=== PATIENT | male | born 1940 | race Asian ===

== ENCOUNTER → 2017-07-17 | Outpatient (CLI) | payer MEDICARE, BC, OTHER ==
[~2017-07-17] MED LIST: GLIM2TAB3 PO; LEVO200 PO; METO-323 PO
[2017-07-17 13:42] LABS: BASOPHILS # (AUTO) 0.03 K/uL (0.00-0.20); BASOPHILS % (AUTO) 0.5 % (0.0-2.0); EOSINOPHILS % (AUTO) 1.74 % (1.0-6.0); HEMATOCRIT 44.2 % (41-53); HEMOGLOBIN 14.7 g/dL (13.5-17.5); LYMPHOCYTES # (AUTO) 1.9 K/uL (1.0-4.8); LYMPHOCYTES % (AUTO) 33.8 % (22.0-44.0); MEAN CORPUSCULAR HEMOGLOBIN 32.1 pg (26.0-34.0); MEAN CORPUSCULAR HGB CONC 33.2 G/dL (31.0-37.0); MEAN CORPUSCULAR VOLUME 97 fL (80-100); MONOCYTES # (AUTO) 0.4 K/uL (0.1-1.0); MONOCYTES % (AUTO) 7.3 % (2.0-9.0); NEUTROPHILS # (AUTO) 3.2 K/uL (1.8-7.7); NEUTROPHILS % (AUTO) 56.7 % (40.0-70.0); PLATELET COUNT (AUTO) 220 K/uL (150-450); RED BLOOD CELL COUNT(AUTO) 4.56 MIL/uL (4.50-5.90); RED CELL DISTRIBUTION WIDTH 13.6 % (11.5-14.5); WHITE BLOOD COUNT (AUTO) 5.7 K/uL (4.5-11.0)
[2017-07-17 13:54] LABS: ALANINE AMINOTRANSFERASE 24 U/L (12-78); ALBUMIN 3.8 g/dL (3.4-5.0); ANION GAP 8 mmol/L (8-16); ASPARTATE AMINOTRANSFERASE 25 U/L (15-37); BILIRUBIN,TOTAL 0.7 mg/dL (0.1-1.0); CARBON DIOXIDE 26 mmol/L (22-29); CHLORIDE 106 mmol/L (98-107); CHOL/HDL RATIO 2.7 (4.2-7.3); GLOMERULAR FILTR. RATE CALC > 60 mL/min (>60); POTASSIUM 4.3 mmol/L (3.5-5.1); SODIUM SERUM 140 mmol/L (136-145); THYROID STIMULATING HORMONE 1.78 uIU/mL (0.36-3.74); TOTAL PROTEIN, SERUM 7.3 g/dL (6.4-8.2); UREA NITROGEN, BLOOD 12 mg/dL (7-18)
== END | disposition home or self-care (01) ==
LOC: LABPV 11:53
PROVIDERS: ATTEND Internal Medicine
DX: I10 Essential (primary) hypertension (principal); E78.2 Mixed hyperlipidemia; E03.9 Hypothyroidism, unspecified; R73.09 Other abnormal glucose
CPT/HCPCS: 83036; 84443

== ENCOUNTER → 2018-05-20 | Outpatient (CLI) | payer MEDICARE, BC, OTHER ==
[~2018-05-20] VITALS: Ht 180.3 cm; Wt 96.5 kg
[~2018-05-20] MED LIST changes: +ASPI-1182 PO; -METO-323 PO; +METO-408 PO; +OLME5TAB PO; +TELM20 PO
[2018-05-20 14:36] VITALS: BP 130/68
== END | disposition home or self-care (01) ==
LOC: SRCNTR 14:30
PROVIDERS: ATTEND Internal Medicine Clinical Cardiac Electrophysiology
DX: I10 Essential (primary) hypertension (principal); E78.5 Hyperlipidemia, unspecified; E03.9 Hypothyroidism, unspecified; E11.9 Type 2 diabetes mellitus without complications; G47.33 Obstructive sleep apnea (adult) (pediatric)
CPT/HCPCS: G0463

== ENCOUNTER → 2018-08-19 | Outpatient (CLI) | payer MEDICARE, BC, OTHER ==
[~2018-08-19] VITALS: Ht 180.3 cm; Wt 95.5 kg
[~2018-08-19] MED LIST changes: -METO-408 PO; -OLME5TAB PO; -TELM20 PO
[2018-08-19 14:27] VITALS: BP 151/68
== END | disposition home or self-care (01) ==
LOC: SRCNTR 14:14
PROVIDERS: ATTEND Internal Medicine Clinical Cardiac Electrophysiology
DX: I10 Essential (primary) hypertension (principal); E78.5 Hyperlipidemia, unspecified; G47.33 Obstructive sleep apnea (adult) (pediatric); E11.9 Type 2 diabetes mellitus without complications
CPT/HCPCS: G0463

== ENCOUNTER 2024-08-07 21:38 | Inpatient (IN) | payer MEDICARE, BC ==
[~2024-08-07] VITALS: Ht 180.3 cm; Wt 94.3 kg
[~2024-08-07 21:38] MED LIST changes: -ASPI-1182 PO; +ASPI-1444 PO; -GLIM2TAB3 PO; +GLIM2TAB30 PO
[2024-08-07 22:18] LABS: BASOPHILS % (AUTO) 0.7 % (0.0-2.0); EOSINOPHILS % (AUTO) 1.4 % (1.0-6.0); HEMATOCRIT 42.9 % (41-53); LYMPHOCYTES # (AUTO) 2.2 K/uL (1.0-4.8); LYMPHOCYTES % (AUTO) 27.7 % (22.0-44.0); MEAN CORPUSCULAR HEMOGLOBIN 31.8 pg (26.0-34.0); MEAN CORPUSCULAR HGB CONC 32.7 G/dL (31.0-37.0); MEAN CORPUSCULAR VOLUME 97 fL (80-100); MONOCYTES # (AUTO) 0.5 K/uL (0.1-1.0); NEUTROPHILS % (AUTO) 63.2 % (40.0-70.0); PLATELET COUNT (AUTO) 207 K/uL (150-450); RED BLOOD CELL COUNT(AUTO) 4.41 MIL/uL (4.50-5.90); RED CELL DISTRIBUTION WIDTH 14.2 % (11.5-14.5); WHITE BLOOD COUNT (AUTO) 7.8 K/uL (4.5-11.0)
[2024-08-07 22:26] LABS: ANION GAP 11 mmol/L (8-16); CARBON DIOXIDE 25 mmol/L (22-29); CHLORIDE 103 mmol/L (98-107); CREATININE 0.92 mg/dL (0.60-1.30); GLOMERULAR FILTR. RATE CALC > 60 mL/min (>60); GLUCOSE,RANDOM 163 mg/dL (70-110); POTASSIUM 4.1 mmol/L (3.5-5.1); SODIUM SERUM 139 mmol/L (136-145); UREA NITROGEN, BLOOD 19 mg/dL (7-18)
[2024-08-07 22:35] LABS: TROPONIN I-HIGH SENSITIVITY 16 ng/L (<76)
[2024-08-08] MEDS ORDERED: DEXTROSE 50%-WATER 25 GM/50 ML SYRINGE IVP PRN (00:45)
[2024-08-08] MEDS ORDERED: ACETAMINOPHEN 325 MG TABLET PO PRN (00:45)
[2024-08-08] MEDS ORDERED: ONDANSETRON HCL 4 MG/2 ML VIAL IVP PRN (00:45)
[2024-08-08] MEDS: ASPIRIN 81 MG CHEWABLE TABLET PO ONE (00:55)
[2024-08-08] MEDS: ATORVASTATIN CALCIUM 40 MG TABLET PO ONE (00:55)
[2024-08-08 01:13] LABS: TROPONIN I-HIGH SENSITIVITY 21 ng/L (<76)
[2024-08-08 01:28] LABS: THYROID STIMULATING HORMONE 0.66 uIU/mL (0.36-3.74)
[2024-08-08] MEDS: LEVOTHYROXINE SODIUM 50 MCG TABLET PO SCH (06:20)
[2024-08-08 06:30] LABS: TROPONIN I-HIGH SENSITIVITY 22 ng/L (<76)
[2024-08-08 09:15] VITALS: BP 118/64; PULSE 48; RESP 18; TEMP 97.5; O2SAT 98
[2024-08-08] MEDS: ASPIRIN 81 MG DR TABLET PO SCH (09:16)
[2024-08-08] MEDS: DOCUSATE SODIUM 100 MG CAPSULE PO SCH (09:16)
[2024-08-08] MEDS: HEPARIN SODIUM,PORCINE 5,000 UNITS/ML VIAL SQ SCH (09:16)
[2024-08-08] MEDS: INSULIN LISPRO 100 UNITS/ML SQ PRN (11:58)
[2024-08-08 12:49] VITALS: BP 140/110; PULSE 53; RESP 18; TEMP 97.8; O2SAT 96
[2024-08-08 16:54] VITALS: BP 102/50; PULSE 40; RESP 18; TEMP 97.8; O2SAT 97
[2024-08-08 17:35] LABS: GLUCOMETER DEV NAME(LOC) 5N.2C; GLUCOSE,POINT OF CARE 99 MG/DL (70-110)
[2024-08-08 17:35] LABS: GLUCOMETER DEV NAME(LOC) 5N.2C; GLUCOSE,POINT OF CARE 206 MG/DL (70-110)
[2024-08-08 17:44] VITALS: PULSE 54
[2024-08-08 19:35] VITALS: BP 123/59; PULSE 45; RESP 18; TEMP 97.5; O2SAT 96
[2024-08-08] MEDS: ATORVASTATIN CALCIUM 40 MG TABLET PO SCH (20:18)
[2024-08-08 23:23] VITALS: PULSE 39; RESP 20; RESP 25; O2SAT 97
[2024-08-09 00:48] VITALS: BP 134/59; PULSE 38; RESP 18; TEMP 97.8; O2SAT 97
[2024-08-09 04:34] VITALS: BP 137/58; PULSE 40; RESP 18; TEMP 97.9; O2SAT 99
[2024-08-09 05:06] LABS: GLUCOMETER DEV NAME(LOC) 5S.1C; GLUCOSE,POINT OF CARE 147 MG/DL (70-110)
[2024-08-09 07:42] LABS: ANION GAP 7 mmol/L (8-16); CALCIUM, TOTAL 8.5 mg/dL (8.8-10.5); CARBON DIOXIDE 26 mmol/L (22-29); CHLORIDE 105 mmol/L (98-107); CREATININE 0.75 mg/dL (0.60-1.30); GLOMERULAR FILTR. RATE CALC > 60 mL/min (>60); GLUCOSE,RANDOM 92 mg/dL (70-110); POTASSIUM 3.8 mmol/L (3.5-5.1); SODIUM SERUM 137 mmol/L (136-145); UREA NITROGEN, BLOOD 14 mg/dL (7-18)
[2024-08-09 07:43] LABS: BASOPHILS % (AUTO) 0.5 % (0.0-2.0); EOSINOPHILS % (AUTO) 2.8 % (1.0-6.0); HEMATOCRIT 40.7 % (41-53); HEMOGLOBIN 13.4 g/dL (13.5-17.5); LYMPHOCYTES # (AUTO) 2.7 K/uL (1.0-4.8); LYMPHOCYTES % (AUTO) 36.5 % (22.0-44.0); MEAN CORPUSCULAR VOLUME 97 fL (80-100); MONOCYTES # (AUTO) 0.6 K/uL (0.1-1.0); MONOCYTES % (AUTO) 8.6 % (2.0-9.0); NEUTROPHILS # (AUTO) 3.8 K/uL (1.8-7.7); NEUTROPHILS % (AUTO) 51.6 % (40.0-70.0); PLATELET COUNT (AUTO) 199 K/uL (150-450); RED CELL DISTRIBUTION WIDTH 13.9 % (11.5-14.5); WHITE BLOOD COUNT (AUTO) 7.4 K/uL (4.5-11.0)
[2024-08-09 07:46] LABS: GLUCOMETER DEV NAME(LOC) 5S.1C; GLUCOSE,POINT OF CARE 104 MG/DL (70-110)
[2024-08-09 07:50] VITALS: BP 117/63; PULSE 42; RESP 18; TEMP 97.6; O2SAT 98
[2024-08-09] MEDS: OxyCODONE HCL/ACETAMINOPHEN 5-325 MG TABLET PO PRN (08:10)
[2024-08-09 14:36] VITALS: BP 137/64; PULSE 48; RESP 17; TEMP 97.8; O2SAT 97
[2024-08-09 15:46] LABS: GLUCOMETER DEV NAME(LOC) 5S.1C; GLUCOSE,POINT OF CARE 169 MG/DL (70-110)
[2024-08-09 16:11] VITALS: BP 139/62; PULSE 49; RESP 18; TEMP 98.1; O2SAT 97
[2024-08-09] MEDS ORDERED: OxyCODONE HCL/ACETAMINOPHEN 5-325 MG TABLET PO PRN (18:41)
[2024-08-09] MEDS ORDERED: ALBU18HF12 IH (18:46)
[2024-08-09] MEDS ORDERED: LEVO175T9 PO (18:46)
[2024-08-09] MEDS ORDERED: RIVA20TA PO (18:46)
[2024-08-09] MEDS ORDERED: METF-81 PO (18:46)
[2024-08-09] MEDS ORDERED: LEVO5TAB13 PO (18:46)
[2024-08-09] MEDS ORDERED: MULT-1387 PO (18:46)
[2024-08-09 20:01] LABS: GLUCOMETER DEV NAME(LOC) 5S.1C; GLUCOSE,POINT OF CARE 116 MG/DL (70-110)
[2024-08-09 20:37] VITALS: BP 128/59; PULSE 54; RESP 19; TEMP 98; O2SAT 96
[2024-08-10 00:28] VITALS: BP 140/59; PULSE 49; RESP 19; TEMP 97.5; O2SAT 97
[2024-08-10 03:31] LABS: GLUCOMETER DEV NAME(LOC) 5S.1C; GLUCOSE,POINT OF CARE 161 MG/DL (70-110)
[2024-08-10 05:20] VITALS: BP 138/52; PULSE 45; RESP 17; TEMP 97.4; O2SAT 99
[2024-08-10 06:45] LABS: BASOPHILS % (AUTO) 1.2 % (0.0-2.0); EOSINOPHILS % (AUTO) 3.3 % (1.0-6.0); HEMATOCRIT 41.5 % (41-53); HEMOGLOBIN 13.6 g/dL (13.5-17.5); LYMPHOCYTES # (AUTO) 2.6 K/uL (1.0-4.8); LYMPHOCYTES % (AUTO) 37.4 % (22.0-44.0); MEAN CORPUSCULAR HEMOGLOBIN 31.8 pg (26.0-34.0); MEAN CORPUSCULAR HGB CONC 32.8 G/dL (31.0-37.0); MEAN CORPUSCULAR VOLUME 97 fL (80-100); MONOCYTES # (AUTO) 0.6 K/uL (0.1-1.0); MONOCYTES % (AUTO) 8.6 % (2.0-9.0); NEUTROPHILS # (AUTO) 3.5 K/uL (1.8-7.7); NEUTROPHILS % (AUTO) 49.5 % (40.0-70.0); PLATELET COUNT (AUTO) 218 K/uL (150-450); RED BLOOD CELL COUNT(AUTO) 4.28 MIL/uL (4.50-5.90); RED CELL DISTRIBUTION WIDTH 13.6 % (11.5-14.5)
[2024-08-10 07:07] LABS: ANION GAP 9 mmol/L (8-16); CALCIUM, TOTAL 8.4 mg/dL (8.8-10.5); CARBON DIOXIDE 26 mmol/L (22-29); CHLORIDE 105 mmol/L (98-107); CREATININE 0.74 mg/dL (0.60-1.30); GLOMERULAR FILTR. RATE CALC > 60 mL/min (>60); GLUCOSE,RANDOM 95 mg/dL (70-110); POTASSIUM 3.7 mmol/L (3.5-5.1); SODIUM SERUM 140 mmol/L (136-145); UREA NITROGEN, BLOOD 15 mg/dL (7-18)
[2024-08-10 08:19] VITALS: BP 139/64; PULSE 44; RESP 18; TEMP 97.4; O2SAT 96
[2024-08-10 08:30] VITALS: PULSE 63
[2024-08-10 11:46] LABS: GLUCOMETER DEV NAME(LOC) 5S.1C; GLUCOSE,POINT OF CARE 97 MG/DL (70-110)
[2024-08-10 11:54] VITALS: BP 103/50; PULSE 48; RESP 18; TEMP 97.2; O2SAT 96
[2024-08-10] MEDS ORDERED: LEVO50 PO (13:02)
[2024-08-10] MEDS ORDERED: ATOR40TA71 PO (13:02)
[2024-08-10] MEDS ORDERED: RIVAROXABAN 20 MG TABLET PO SCH (18:00)
[2024-08-10 20:21] LABS: GLUCOMETER DEV NAME(LOC) 5S.1C; GLUCOSE,POINT OF CARE 134 MG/DL (70-110)
== END 2024-08-10 14:10 | disposition home health service (06) | DRG 291 ==
LOC: EMS 21:38 → EDH 08-08 00:56 → 5S 08-08 06:45
PROVIDERS: ADMIT Internal Medicine; ATTEND Internal Medicine
DX: I11.0 Hypertensive heart disease with heart failure (principal); I50.31 Acute diastolic (congestive) heart failure; R07.89 Other chest pain; I49.5 Sick sinus syndrome; E03.9 Hypothyroidism, unspecified; E78.5 Hyperlipidemia, unspecified; I35.0 Nonrheumatic aortic (valve) stenosis; G47.33 Obstructive sleep apnea (adult) (pediatric); I48.0 Paroxysmal atrial fibrillation; E11.9 Type 2 diabetes mellitus without complications; Z88.2 Allergy status to sulfonamides; Z91.199 Patient's noncompliance with other medical treatment and regimen due to unspecified reason; Z63.4 Disappearance and death of family member
CPT/HCPCS: 71045; 80048; 82962; 83735; 83880; 84443; 84484; 85025; 93005; 93306; 94660; 97110; 97161; 99285; J1644; 36415-L1; 36415-TC

== ENCOUNTER 2025-08-26 01:34 | Emergency (ER) | payer MEDICARE, BC ==
[~2025-08-26] VITALS: Ht 177.8 cm; Wt 93.2 kg
[~2025-08-26 01:34] MED LIST changes: +ALBU18HF12 IH; +ATOR40TA71 PO; -GLIM2TAB30 PO; +LEVO175T9 PO; -LEVO200 PO; +LEVO50 PO; +LEVO5TAB13 PO; +METF-81 PO; +MULT-1387 PO; +RIVA20TA PO
[2025-08-26 02:09] VITALS: TEMP 97.9
[2025-08-26 05:06] VITALS: BP 142/75; PULSE 63; RESP 15; O2SAT 97
== END 2025-08-26 06:41 | disposition home or self-care (01) ==
LOC: EMS 01:35
DX: M54.50 Low back pain, unspecified (principal); E03.9 Hypothyroidism, unspecified; E11.9 Type 2 diabetes mellitus without complications; E78.00 Pure hypercholesterolemia, unspecified; I10 Essential (primary) hypertension; Z88.2 Allergy status to sulfonamides; Z79.82 Long term (current) use of aspirin; Z59.9 Problem related to housing and economic circumstances, unspecified; Z79.899 Other long term (current) drug therapy
CPT/HCPCS: 99283; Z7502